=== PATIENT | female | born 1975 | race African-American/Black ===

== ENCOUNTER 2023-03-20 07:23 | Day surgery (SDC) | payer BC ==
[2023-03-20] MEDS ORDERED: PROPOFOL 160 ML ONE (07:54)
[2023-03-20] MEDS ORDERED: LIDOCAINE HCL/PF 2% SDV 5ML VIAL ONE (07:54)
[2023-03-20 07:57] VITALS: BMI 21.6
[2023-03-20 08:45] VITALS: TEMP 97.4
[2023-03-20 08:55] VITALS: RESP 18
[2023-03-20 09:19] VITALS: BP 98/60; PULSE 58
== END 2023-03-20 09:19 | disposition home or self-care (01) ==
LOC: FASU-ENDO 07:23
PROVIDERS: ATTEND Internal Medicine Gastroenterology
PROC: 0DJD8ZZ Inspection of Lower Intestinal Tract, Via Natural or Artificial Opening Endoscopic (ICD-10-PCS; principal; 2023-03-20 08:19)
DX: Z12.11 Encounter for screening for malignant neoplasm of colon (principal)
CPT/HCPCS: 81025